=== PATIENT | female | born 1950 | race Caucasian/White ===

== ENCOUNTER 2024-02-14 13:41 | Inpatient (IN) | payer OTHER ==
[2024-02-14] MEDS: SODIUM CHLORIDE 0.9% 500 ML INFUS.BAG IV ONE (15:40)
[2024-02-14 15:54] LABS: HEMATOCRIT 32.1 % (32.4-45.2); HEMOGLOBIN 11.2 GM/dL (10.7-15.3); MCH 30.8 pg (25.7-33.7); MCHC 35.1 g/dl (32.0-36.0); MEAN CELL VOLUME 87.8 fl (80-96); MEAN PLT VOLUME 8.2 fl (7.5-11.1); PLATELET COUNT 395 10^3/uL (134-434); RBC 3.65 M/mm3 (3.60-5.2); RDW 15.2 % (11.6-15.6); WHITE BLOOD COUNT 14.2 K/mm3 (4.0-10.0)
[2024-02-14 16:44] LABS: CHLORIDE 91 mmol/L (98-107); SODIUM 131 mmol/L (136-145)
[2024-02-14 16:46] LABS: CALCIUM 7.4 mg/dL (8.5-10.1)
[2024-02-14 16:47] LABS: ALBUMIN 2.5 g/dl (3.4-5.0); CO2 23 mmol/L (21-32); GLUCOSE,RANDOM 101 mg/dL (74-106)
[2024-02-14 16:48] LABS: ANION GAP 16 mmol/L (4-13); MAGNESIUM 0.7 mg/dL (1.8-2.4)
[2024-02-14 16:50] LABS: SGOT/AST 37 U/L (15-37); SGPT/ALT 109 U/L (13-61)
[2024-02-14 16:51] LABS: BILIRUBIN,TOTAL 0.7 mg/dL (0.2-1); TOT PROT 6.7 g/dl (6.4-8.2)
[2024-02-14 16:53] LABS: ALK PHOS 530 U/L (45-117)
[2024-02-14 17:04] LABS: ANISOCYTOSIS 1+; MACROCYTOSIS 0
[2024-02-14] MEDS ORDERED: KCL 10 MEQ IVPB 10 MEQ/100 ML INFUS.BAG IVPB ONE ×3 (18:17→21:38)
[2024-02-14] MEDS ORDERED: POTASSIUM CHLORIDE TABS 20 MEQ TABLET.ER (FP) PO ONE (18:17)
[2024-02-14] MEDS ORDERED: MAGNESIUM SULFATE IN WATER 2 GM/50 ML IVPB IVPB ONE (18:17)
[2024-02-14] MEDS: POTASSIUM CHLORIDE TABS 20 MEQ TABLET.ER (FP) PO ONE (18:45)
[2024-02-14] MEDS: KCL 10 MEQ IVPB 10 MEQ/100 ML INFUS.BAG IVPB SCH (18:45)
[2024-02-14] MEDS: MAGNESIUM SULF 50% (8.12 MEQ/2 ML-1 GM VIAL) IVPB ONE (18:46)
[2024-02-14] MEDS: LACTATED RINGERS SOLUTION 1000 ML INFUS.BAG IV ONE (19:51)
[2024-02-14 22:25] LABS: CHLORIDE 96 mmol/L (98-107); SODIUM 133 mmol/L (136-145)
[2024-02-14 22:26] LABS: CALCIUM 7.1 mg/dL (8.5-10.1); POTASSIUM 2.5 mmol/L (3.5-5.1)
[2024-02-14 22:27] LABS: ANION GAP 15 mmol/L (4-13); BLOOD UREA NITROGEN 31.5 mg/dL (7-18); CO2 22 mmol/L (21-32); GLUCOSE,RANDOM 98 mg/dL (74-106)
[2024-02-14 22:30] LABS: CREATININE 1.7 mg/dL (0.55-1.3)
[2024-02-14] MEDS ORDERED: ONDANSETRON 8 MG TABLET (FP) PO PRN (23:00)
[2024-02-15] MEDS ORDERED: MAGNESIUM SULFATE IN WATER 2 GM/50 ML IVPB IVPB ONE ×2 (01:20→10:46)
[2024-02-15] MEDS: MAGNESIUM SULF 50% (8.12 MEQ/2 ML-1 GM VIAL) IVPB ONE (01:39)
[2024-02-15] MEDS: POTASSIUM CHLORIDE TABS 20 MEQ TABLET.ER (FP) PO ONE ×4 (01:39→22:34)
[2024-02-15] MEDS: SODIUM CHLORIDE 1,000 ML IV SCH (01:39)
[2024-02-15] MEDS: SODIUM CHLORIDE 1,000 ML with POTASSIUM CHLORIDE 40 MEQ IV SCH (03:32)
[2024-02-15 08:41] LABS: HEMATOCRIT 26.7 % (32.4-45.2); HEMOGLOBIN 9.5 GM/dL (10.7-15.3); MCH 31.1 pg (25.7-33.7); MCHC 35.5 g/dl (32.0-36.0); MEAN CELL VOLUME 87.7 fl (80-96); MEAN PLT VOLUME 7.7 fl (7.5-11.1); PLATELET COUNT 304 10^3/uL (134-434); RBC 3.05 M/mm3 (3.60-5.2); RDW 15.3 % (11.6-15.6); WHITE BLOOD COUNT 8.8 K/mm3 (4.0-10.0)
[2024-02-15 09:14] LABS: CHLORIDE 104 mmol/L (98-107); SODIUM 139 mmol/L (136-145)
[2024-02-15 09:16] LABS: CALCIUM 7.5 mg/dL (8.5-10.1)
[2024-02-15 09:17] LABS: CO2 20 mmol/L (21-32); GLUCOSE,RANDOM 101 mg/dL (74-106); MAGNESIUM 1.5 mg/dL (1.8-2.4)
[2024-02-15 09:20] LABS: SGOT/AST 30 U/L (15-37); SGPT/ALT 69 U/L (13-61)
[2024-02-15 09:21] LABS: CREATININE 1.2 mg/dL (0.55-1.3)
[2024-02-15 09:22] LABS: ANISOCYTOSIS 0; MACROCYTOSIS 0; TOT PROT 5.3 g/dl (6.4-8.2)
[2024-02-15 09:23] LABS: BILIRUBIN,TOTAL 0.9 mg/dL (0.2-1)
[2024-02-15 09:27] LABS: ALBUMIN 1.9 g/dl (3.4-5.0); ALK PHOS 360 U/L (45-117); ANION GAP 15 mmol/L (4-13); PHOSPHOROUS 0.6 mg/dL (2.5-4.9); POTASSIUM 2.7 mmol/L (3.5-5.1)
[2024-02-15] MEDS ORDERED: LOSARTAN 50MG/HCTZ 12.5MG 1 TAB PO SCH (10:00)
[2024-02-15] MEDS ORDERED: NAPH,MB-DB/K PH,MBDB POWDER PACKET ONE ×2 (10:46→15:04)
[2024-02-15] MEDS: MAGNESIUM 2GM/50ML STERILE WATER IVPB IVPB ONE (10:53)
[2024-02-15] MEDS: NAPH,MB-DB/K PH,MBDB POWDER PACKET PO SCH (10:53)
[2024-02-15] MEDS: HEPARIN NA (PORCINE) 5,000 UNITS/ML 1ML VIAL SQ SCH (10:53)
[2024-02-15] MEDS: POTASSIUM CHLORIDE 40 MEQ in SODIUM CHLORIDE 1,000 ML IV SCH (19:45)
[2024-02-15 21:16] LABS: CHLORIDE 105 mmol/L (98-107); SODIUM 136 mmol/L (136-145)
[2024-02-15 21:18] LABS: ALBUMIN 1.9 g/dl (3.4-5.0); CALCIUM 7.7 mg/dL (8.5-10.1)
[2024-02-15 21:19] LABS: BLOOD UREA NITROGEN 20.3 mg/dL (7-18); CO2 21 mmol/L (21-32); GLUCOSE,RANDOM 151 mg/dL (74-106); MAGNESIUM 1.7 mg/dL (1.8-2.4)
[2024-02-15 21:22] LABS: SGOT/AST 37 U/L (15-37); SGPT/ALT 63 U/L (13-61)
[2024-02-15 21:23] LABS: BILIRUBIN,TOTAL 0.5 mg/dL (0.2-1)
[2024-02-15 21:24] LABS: TOT PROT 5.4 g/dl (6.4-8.2)
[2024-02-15 21:25] LABS: ALK PHOS 369 U/L (45-117)
[2024-02-15 21:40] LABS: ANION GAP 10 mmol/L (4-13); PHOSPHOROUS 0.7 mg/dL (2.5-4.9); POTASSIUM 2.7 mmol/L (3.5-5.1)
[2024-02-16] MEDS: POTASSIUM CHLORIDE TABS 20 MEQ TABLET.ER (FP) PO ONE (00:18)
[2024-02-16] MEDS: POTASSIUM CHLORIDE 40 MEQ in SODIUM CHLORIDE 1,000 ML IV SCH (03:27)
[2024-02-16] MEDS: LOPERAMIDE HCL 2 MG CAPSULE PO SCH (03:27)
[2024-02-16] MEDS: MAGNESIUM SULF 50% (8.12 MEQ/2 ML-1 GM VIAL) IVPB ONE ×2 (06:40→20:10)
[2024-02-16] MEDS: KCL 10 MEQ IVPB 10 MEQ/100 ML INFUS.BAG IVPB SCH (06:50)
[2024-02-16 08:01] LABS: HEMATOCRIT 26.1 % (32.4-45.2); HEMOGLOBIN 9.1 GM/dL (10.7-15.3); MCH 30.5 pg (25.7-33.7); MCHC 34.9 g/dl (32.0-36.0); MEAN CELL VOLUME 87.4 fl (80-96); MEAN PLT VOLUME 7.8 fl (7.5-11.1); PLATELET COUNT 326 10^3/uL (134-434); RBC 2.99 M/mm3 (3.60-5.2); RDW 15.4 % (11.6-15.6); WHITE BLOOD COUNT 6.9 K/mm3 (4.0-10.0)
[2024-02-16 08:18] LABS: CHLORIDE 108 mmol/L (98-107); POTASSIUM 2.9 mmol/L (3.5-5.1); SODIUM 139 mmol/L (136-145)
[2024-02-16 08:23] LABS: ALBUMIN 1.9 g/dl (3.4-5.0); ANION GAP 9 mmol/L (4-13); BLOOD UREA NITROGEN 17.2 mg/dL (7-18); CALCIUM 7.7 mg/dL (8.5-10.1); CO2 22 mmol/L (21-32); MAGNESIUM 1.3 mg/dL (1.8-2.4)
[2024-02-16 08:24] LABS: GLUCOSE,RANDOM 124 mg/dL (74-106)
[2024-02-16 08:26] LABS: CREATININE 0.8 mg/dL (0.55-1.3); SGOT/AST 31 U/L (15-37); SGPT/ALT 59 U/L (13-61)
[2024-02-16 08:28] LABS: TOT PROT 5.3 g/dl (6.4-8.2)
[2024-02-16 08:32] LABS: ALK PHOS 323 U/L (45-117); PHOSPHOROUS 0.8 mg/dL (2.5-4.9)
[2024-02-16 08:56] LABS: ANISOCYTOSIS 0; MACROCYTOSIS 0
[2024-02-16 11:36] VITALS: BMI 32.0
[2024-02-16] MEDS: NAPH,MB-DB/K PH,MBDB POWDER PACKET PO SCH (16:10)
[2024-02-16 16:51] LABS: CHLORIDE 106 mmol/L (98-107); SODIUM 138 mmol/L (136-145)
[2024-02-16 16:52] LABS: POTASSIUM 2.7 mmol/L (3.5-5.1)
[2024-02-16 16:53] LABS: ANION GAP 8 mmol/L (4-13); BLOOD UREA NITROGEN 15.6 mg/dL (7-18); CALCIUM 7.8 mg/dL (8.5-10.1); CO2 25 mmol/L (21-32)
[2024-02-16 16:54] LABS: GLUCOSE,RANDOM 153 mg/dL (74-106)
[2024-02-16 16:57] LABS: CREATININE 0.9 mg/dL (0.55-1.3)
[2024-02-16 20:10] LABS: MAGNESIUM 1.7 mg/dL (1.8-2.4)
[2024-02-16 20:15] LABS: PHOSPHOROUS 0.8 mg/dL (2.5-4.9)
[2024-02-16] MEDS: POTASSIUM PHOSPHATE 15 MM in SODIUM CHLORIDE 250 ML IVPB ONE (20:47)
[2024-02-16] MEDS: POTASSIUM CHLORIDE TABS 20 MEQ TABLET.ER (FP) PO SCH (21:49)
[2024-02-17] MEDS: ACETAMINOPHEN 325 MG TABLET (FP) PO PRN (06:35)
[2024-02-17] MEDS ORDERED: MAGNESIUM SULF 50% (8.12 MEQ/2 ML-1 GM VIAL) IVPB ONE (06:42)
[2024-02-17 08:12] LABS: HEMATOCRIT 23.8 % (32.4-45.2); HEMOGLOBIN 8.4 GM/dL (10.7-15.3); MCH 30.9 pg (25.7-33.7); MCHC 35.3 g/dl (32.0-36.0); MEAN CELL VOLUME 87.6 fl (80-96); MEAN PLT VOLUME 7.5 fl (7.5-11.1); PLATELET COUNT 310 10^3/uL (134-434); RBC 2.72 M/mm3 (3.60-5.2); RDW 15.5 % (11.6-15.6)
[2024-02-17 09:09] LABS: ALBUMIN 1.7 g/dl (3.4-5.0); ALK PHOS 290 U/L (45-117); ANION GAP 8 mmol/L (4-13); BILIRUBIN,TOTAL 0.4 mg/dL (0.2-1); BLOOD UREA NITROGEN 11.7 mg/dL (7-18); CALCIUM 7.3 mg/dL (8.5-10.1); CHLORIDE 106 mmol/L (98-107); CO2 24 mmol/L (21-32); CREATININE 0.7 mg/dL (0.55-1.3); GLUCOSE,RANDOM 133 mg/dL (74-106); MAGNESIUM 1.5 mg/dL (1.8-2.4); POTASSIUM 2.7 mmol/L (3.5-5.1); SGOT/AST 51 U/L (15-37); SGPT/ALT 68 U/L (13-61); SODIUM 138 mmol/L (136-145); TOT PROT 5.1 g/dl (6.4-8.2)
[2024-02-17 09:11] LABS: PHOSPHOROUS 1.4 mg/dL (2.5-4.9)
[2024-02-17] MEDS: MULTIVITAMINS THER W-MINERALS COMBO TABLET (FP) PO SCH (09:48)
[2024-02-17] MEDS: MAGNESIUM 2GM/50ML STERILE WATER IVPB IVPB ONE (11:30)
[2024-02-17] MEDS: POTASSIUM PHOSPHATE 30 MM in SODIUM CHLORIDE 500 ML IVPB ONE ×2 (12:31→12:32)
[2024-02-17] MEDS: BANATROL PLUS POWDER PACKET PO SCH (14:55)
[2024-02-17 20:32] LABS: POTASSIUM 3.2 mmol/L (3.5-5.1)
[2024-02-17 20:34] LABS: CALCIUM 7.3 mg/dL (8.5-10.1)
[2024-02-17 20:35] LABS: BLOOD UREA NITROGEN 11.8 mg/dL (7-18); MAGNESIUM 1.6 mg/dL (1.8-2.4)
[2024-02-17 20:38] LABS: CREATININE 0.7 mg/dL (0.55-1.3); PHOSPHOROUS 3.6 mg/dL (2.5-4.9)
[2024-02-18 09:13] LABS: POTASSIUM 3.3 mmol/L (3.5-5.1)
[2024-02-18 09:16] LABS: BLOOD UREA NITROGEN 8.5 mg/dL (7-18); CALCIUM 7.1 mg/dL (8.5-10.1); MAGNESIUM 1.1 mg/dL (1.8-2.4)
[2024-02-18 09:19] LABS: CREATININE 0.6 mg/dL (0.55-1.3)
[2024-02-18 09:20] LABS: PHOSPHOROUS 2.7 mg/dL (2.5-4.9)
[2024-02-18] MEDS: MAGNESIUM SULFATE IN WATER 2 GM/50 ML IVPB IVPB ONE (12:34)
[2024-02-18 19:36] LABS: POTASSIUM 3.4 mmol/L (3.5-5.1)
[2024-02-18 19:37] LABS: CALCIUM 7.1 mg/dL (8.5-10.1)
[2024-02-18 19:38] LABS: BLOOD UREA NITROGEN 7.6 mg/dL (7-18); MAGNESIUM 1.3 mg/dL (1.8-2.4)
[2024-02-18 19:41] LABS: CREATININE 0.8 mg/dL (0.55-1.3); PHOSPHOROUS 2.4 mg/dL (2.5-4.9)
[2024-02-19 08:54] LABS: POTASSIUM 3.8 mmol/L (3.5-5.1)
[2024-02-19 08:56] LABS: POTASSIUM 3.8 mmol/L (3.5-5.1)
[2024-02-19 09:00] LABS: CALCIUM 7.1 mg/dL (8.5-10.1)
[2024-02-19 09:01] LABS: ALBUMIN 1.7 g/dl (3.4-5.0); BLOOD UREA NITROGEN 7.2 mg/dL (7-18)
[2024-02-19 09:04] LABS: BILIRUBIN,TOTAL 0.4 mg/dL (0.2-1); TOT PROT 5.4 g/dl (6.4-8.2)
[2024-02-19 09:05] LABS: BLOOD UREA NITROGEN 7.3 mg/dL (7-18); CALCIUM 7.1 mg/dL (8.5-10.1); MAGNESIUM 1.1 mg/dL (1.8-2.4)
[2024-02-19 09:07] LABS: CREATININE 0.5 mg/dL (0.55-1.3)
[2024-02-19 09:09] LABS: CREATININE 0.5 mg/dL (0.55-1.3); PHOSPHOROUS 2.5 mg/dL (2.5-4.9)
[2024-02-19] MEDS: MAGNESIUM SULFATE IN WATER 2 GM/50 ML IVPB IVPB ONE (12:10)
[2024-02-19 16:14] LABS: POTASSIUM 3.9 mmol/L (3.5-5.1)
[2024-02-19 16:15] LABS: CALCIUM 7.1 mg/dL (8.5-10.1)
[2024-02-19 16:16] LABS: BLOOD UREA NITROGEN 6.5 mg/dL (7-18); MAGNESIUM 1.3 mg/dL (1.8-2.4)
[2024-02-19 16:19] LABS: CREATININE 0.5 mg/dL (0.55-1.3)
[2024-02-19] MEDS: MAGNESIUM 1GM/D5W - 1 GM/100 ML IVPB IVPB ONE (18:59)
[2024-02-20 09:36] LABS: POTASSIUM 3.8 mmol/L (3.5-5.1)
[2024-02-20 09:41] LABS: ALBUMIN 1.8 g/dl (3.4-5.0); CALCIUM 7.6 mg/dL (8.5-10.1)
[2024-02-20 09:42] LABS: BLOOD UREA NITROGEN 5.7 mg/dL (7-18); MAGNESIUM 1.3 mg/dL (1.8-2.4)
[2024-02-20 09:44] LABS: CREATININE 0.5 mg/dL (0.55-1.3); PHOSPHOROUS 2.2 mg/dL (2.5-4.9)
[2024-02-20 09:45] LABS: BILIRUBIN,TOTAL 0.4 mg/dL (0.2-1)
[2024-02-20 09:46] LABS: TOT PROT 5.6 g/dl (6.4-8.2)
[2024-02-20] MEDS: NAPH,MB-DB/K PH,MBDB POWDER PACKET PO ONE (11:54)
[2024-02-20] MEDS: MAGNESIUM SULF 50% (8.12 MEQ/2 ML-1 GM VIAL) IVPB ONE (11:54)
[2024-02-20 14:07] VITALS: RESP 18
[2024-02-20 16:06] LABS: MAGNESIUM 1.9 mg/dL (1.8-2.4)
[2024-02-20 16:10] LABS: PHOSPHOROUS 3.2 mg/dL (2.5-4.9)
[2024-02-20 18:23] VITALS: BP 108/65; PULSE 89; TEMP 99
== END 2024-02-20 19:39 | disposition home or self-care (01) | DRG 641 ==
LOC: JER 13:41 → JERBED 20:40 → J4S 02-15 15:34
PROVIDERS: ADMIT Internal Medicine; ATTEND Internal Medicine
DX: E87.6 Hypokalemia (principal); C78.7 Secondary malignant neoplasm of liver and intrahepatic bile duct; N17.9 Acute kidney failure, unspecified; E83.42 Hypomagnesemia; T45.1X5A Adverse effect of antineoplastic and immunosuppressive drugs, initial encounter; Y92.89 Other specified places as the place of occurrence of the external cause; R19.7 Diarrhea, unspecified; C54.1 Malignant neoplasm of endometrium; E83.39 Other disorders of phosphorus metabolism; I10 Essential (primary) hypertension
CPT/HCPCS: 0241U-QW; 36415; 71045-TC-FY; 74176-TC; 76705-TC; 80048; 80053; 82248; 82570; 82728; 83540; 83550; 83690; 83735; 84100; 84133; 84156; 84300; 85025; 85027; 87040; 87045; 87046; 87186; 87324; 87449; 93005; 93010; 97116-GP; 97161-GP; 99285-25; J1644

== ENCOUNTER 2024-03-05 18:48 | Emergency (ER) | payer OTHER ==
[2024-03-05] MEDS ORDERED: LIDOCAINE HCL 1%, 10 MG/ML (20ML VIAL) ONE (18:55)
[2024-03-05 19:39] LABS: BASO % 0.2 % (0-2.0); HEMATOCRIT 37.8 % (32.4-45.2); LYMPH % 11.4 % (8-40); MCHC 31.6 g/dl (32.0-36.0); MEAN CELL VOLUME 94.7 fl (80-96); MEAN PLT VOLUME 7.9 fl (7.5-11.1); MONO % 6.4 % (3.8-10.2); PLATELET COUNT 696 10^3/uL (134-434); RBC 3.99 M/mm3 (3.60-5.2); RDW 16.9 % (11.6-15.6); WHITE BLOOD COUNT 14.6 K/mm3 (4.0-10.0)
[2024-03-05 19:47] LABS: INR 1.34 (0.83-1.09)
[2024-03-05 19:54] LABS: ACTIVATED PTT 30.8 SECONDS (25.2-36.5)
[2024-03-05 19:57] LABS: CHLORIDE 98 mmol/L (98-107); POTASSIUM 4.8 mmol/L (3.5-5.1); SODIUM 136 mmol/L (136-145)
[2024-03-05 19:58] LABS: BLOOD UREA NITROGEN 19.6 mg/dL (7-18); CALCIUM 8.3 mg/dL (8.5-10.1)
[2024-03-05 19:59] LABS: ANION GAP 15 mmol/L (4-13); CO2 24 mmol/L (21-32); GLUCOSE,RANDOM 192 mg/dL (74-106); MAGNESIUM 1.3 mg/dL (1.8-2.4)
[2024-03-05 20:02] LABS: CREATININE 1.4 mg/dL (0.55-1.3); SGOT/AST 52 U/L (15-37); SGPT/ALT 25 U/L (13-61)
[2024-03-05 20:03] LABS: BILIRUBIN,TOTAL 0.8 mg/dL (0.2-1)
[2024-03-05 20:06] LABS: ALK PHOS 173 U/L (45-117); N-TERMINAL BNP 6221.8 pg/ml (5-125)
[2024-03-05 20:07] LABS: VENOUS BASE EXCESS -4.7 mmol/L (-2-2); VENOUS O2 SATURATION 65.2 % (70-80); VENOUS PCO2 48.2 mmHg (38-52); VENOUS PH 7.28 (7.310-7.410)
[2024-03-05 20:13] LABS: LACTIC ACID 6.7 mmol/L (0.4-2.0)
[2024-03-05] MEDS ORDERED: MAGNESIUM SULFATE IN WATER 2 GM/50 ML IVPB IVPB ONE (20:16)
[2024-03-05] MEDS: MAGNESIUM SULFATE IN WATER 2 GM/50 ML IVPB IVPB ONE (20:27)
[2024-03-05 20:40] LABS: ANISOCYTOSIS 2+; MACROCYTOSIS 0
[2024-03-05 20:42] VITALS: TEMP 98.5; BMI 34.7
[2024-03-05 20:44] VITALS: BP 110/61; PULSE 132; RESP 30
[2024-03-05 20:58] LABS: LDH 480 U/L (84-246)
[2024-03-05 22:08] LABS: BF WBC & OTHER NUCLEATED CELLS 36022 /mm3; BODY FLUID MONOCYTE 12 %
[2024-03-05] MEDS: SODIUM CHLORIDE 0.9% 500 ML INFUS.BAG IV ONE (22:16)
[2024-03-05] MEDS ORDERED: PIPERACILLIN/TAZOB 4.5 GM 4.5 GM/100 ML BAG IVPB ONE (22:18)
[2024-03-05] MEDS ORDERED: VANCOMYCIN/WATER 1250 MG 1,250 MG/250 ML BAG IVPB ONE (22:18)
[2024-03-05] MEDS: PIPERACILLIN/TAZOB 4.5 GM 4.5 GM in DEXTROSE 5%-WATER 100 ML IVPB ONE (22:43)
[2024-03-06] MEDS: VANCOMYCIN/WATER 1250 MG 1,250 MG/250 ML BAG IVPB ONE (00:17)
[2024-03-06] MEDS: ALBUMIN HUMAN 25% 100 ML VIAL IV SCH (00:18)
== END 2024-03-06 00:19 | disposition short-term general hospital (02) ==
LOC: JER 18:48
PROC: 3E03329 Introduction of Other Anti-infective into Peripheral Vein, Percutaneous Approach (ICD-10-PCS; principal; 2024-03-05)
PROC: 3E033GC Introduction of Other Therapeutic Substance into Peripheral Vein, Percutaneous Approach (ICD-10-PCS; 2024-03-05)
DX: R06.02 Shortness of breath (principal); J93.0 Spontaneous tension pneumothorax; Z20.822 Contact with and (suspected) exposure to COVID-19
CPT/HCPCS: 0241U-QW; 36415; 71045-TC-FY; 76604; 80053; 82042; 82150; 82803; 82945; 83605; 83615; 83735; 83880; 83986; 84157; 84478; 84484; 84560; 85025; 85610; 85730; 87070; 87075; 87186; 87205; 93005; 93010; 99291